=== PATIENT | male | born 1990 | race Caucasian/White ===

== ENCOUNTER → 2024-05-18 | Outpatient (CLI) | payer BC, SELFPAY ==
--- NOTE | 2024-05-18 15:17 | RAD_ITS ---
EXAM: XR RIGHT HAND COMPLETE, 3 OR MORE VIEWS CLINICAL INDICATION: CONTUSION OF RIGHT HAND TECHNIQUE: Frontal, lateral and oblique views of the right hand. COMPARISON: No relevant prior studies available. FINDINGS: BONES/JOINTS: Unremarkable. No acute fracture. No subluxation. Normal alignment. Preservation of the joint space. No sclerotic or destructive changes observed. SOFT TISSUES: Unremarkable. No soft tissue swelling or gas. No radiopaque foreign body. RAD/Hand Min 3 Views IMPRESSION: Negative right hand x-rays. Electronically Signed: Ricki Rose MD at 15:48 EST ,
== END | disposition home or self-care (01) ==
PROVIDERS: Visit Provider Nurse Practitioner Family
DX: S60.221A Contusion of right hand, initial encounter (principal)
CPT/HCPCS: 73130

== ENCOUNTER 2024-09-12 01:13 | Emergency (ER) | payer OTHER, SELFPAY ==
[2024-09-12 01:13] VITALS: BP 139/87; PULSE 85; RESP 16; TEMP 36.5; O2SAT 98; BMI 28.7
--- NOTE | 2024-09-12 01:19 | EX.ED.UPPERE ---
HPI History of Present Illness Chief Complaint: Laceration Detail of Chief Complaint: Right elbow laceration Informant: patient Narrative Narrative: Patient presents the emergency department complaint of a laceration to his right elbow. 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 He is right-hand dominant. Unsure of his last tetanus shot. PFSH PFS Medical History no medical history Home Medications ?Medication ?Instructions ?Recorded ?Last Taken ?Type NK 09/12/24 Unknown History Allergy/AdvReac Type Severity Reaction Status Date / Time No Known Allergies Allergy Verified 09/12/24 01:14 Social History Smoking Status: Current every day smoker tobacco type: e-cigarettes ROS ROS ED Review of Systems ROS Unobtainable: other Constitutional Constitutional ED: Reports lethargy; Denies chills, fever(s), sweats or weight loss Eyes Eyes: Denies blurry vision, change in vision or diplopia ENT ENT ED: Denies rhinorrhea or sore throat Cardiovascular Cardiovascular: Denies chest pain, orthopnea or racing heartbeat Respiratory/Chest Respiratory/Chest: Denies cough, dyspnea, dyspnea on exertion, orthopnea or sputum Gastrointestinal Gastrointestinal: Denies abdominal pain, diarrhea, nausea or vomiting Genitourinary Genitourinary ED: Denies dysuria, hematuria or urinary frequency Musculoskeletal Musculoskeletal: Denies arthralgias, back pain, myalgias or neck pain Integumentary Reports other Details: Laceration right elbow ; Denies abscess, Abrasions or rash Neurologic Neurologic: Denies headache(s) or weakness Psychiatric Psychiatric: Denies anxiety, depression or suicidal thoughts Endocrine Endocrinology: Denies polydipsia, polyphagia or polyuria Hematologic/Lymphatic Hematologic/Lymphatic: Denies easy bleeding, easy bruising or lymphadenopathy Allergic/Immunologic Allergic/Immunologic ED: Denies mouth swelling, tongue swelling or urticaria EXAM Physical Exam Const Vital Signs: 09/12/24 01:13 Temperature 97.7 F L Temperature Source Oral Pulse Rate 85 Respiratory Rate 16 Blood Pressure 139/87 H Blood Pressure Mean 104 Pulse Ox 98 Oxygen Delivery Method Room Air Positive well nourished and well developed General Appearance ED: well developed and NAD HEENT Reports TM's clear and moist mucous membranes normocephalic and atraumatic; Negative for trauma or tenderness Tympanic Membrane ED: Yes TM's clear Eyes PERRL and EOMs intact bilaterally General Eye ED: Negative for pale conjunctiva or scleral icterus Neck no lymphadenopathy, supple and no JVD General: Negative for tenderness Chest Wall inspection of chest normal and palpation of chest normal Chest: Negative for tenderness Resp normal respiratory effort and clear to auscultation bilaterally Effort and Inspection: Negative for respiratory distress or pain with movement Auscultation: Negative for rhonchi, wheezes or diminished lung sounds Cardio regular rate, regular rhythm, S1 normal heart sound, S2 normal heart sound and no murmurs Peripheral Pulses: pulses 2+ throughout GI normal to inspection, nondistended, normoactive bowel sounds, soft to palpation, non-tender, non-distended and no masses Back/Spine no CVA tenderness and no thoracic nor lumbar tenderness Extremity Extremity Narrative: Right elbow-no bony tenderness on exam. He does have a 3 cm laceration proximal to the olecranon posteriorly. It is flap-like. Neurovascularly intact distally. No significant bleeding at this time. Normal range of motion at the elbow. General Extremety ED: Negative for edema General Extremity: Negative for edema Neuro oriented x3, CN's II-XII intact bilaterally, no sensory deficits noted and gait normal Sensorium / Orientation: awake, alert, oriented to person, oriented to place and oriented to time Motor Exam: strength 5/5 throughout and strength abnormal Psych mental status grossly normal Skin no rashes or lesions noted and no wounds MDM MDM MDM Narrative Medical decision making narrative: Patient presents with laceration to his right elbow. Please see procedure note for repair. Clean dressing applied after. He received a tetanus booster. The wound was explored and was superficial and did not involve the joint. I do not feel any imaging is indicated. Patient advised to follow-up with [facility] in 10 days for suture removal. He is to return if increasing pain, redness, swelling, purulent drainage, or condition should worsen anyway. Procedures Lacerations Right elbow laceration: Length: 1.18 in Depth: Sub Q Shape: Flap Prep: Sterile Conditions and Shure-Clens Laceration repair: Irrigated, Lidocaine, Local and Skin sutures Irrigated (ml): 50 Number of Sutures/Abigail: 3 Suture Information: Ethilon, Simple and 4-0 Discharge Plan Triage Chief Complaint: Laceration ED Provider: Yuli Ramirez Dx/Rx/DC Orders Clinical Impression: Laceration of elbow, right Instructions: ED Laceration Extremity Prescriptions: No Action NK Primary Care Provider: Care Physician,No Primary Referrals: [facility] [Group of Physicians] - 10 Day for suture removal Care Physician,No Primary [Primary Care Provider] - Print Language: Yoruba Disposition Disposition: Home, Self Care
[2024-09-12] MEDS: Diphth,Pertuss(Acell),Tet Vac 0.5 ML Vial IM (01:23)
[2024-09-12] MEDS: Lidocaine 1% (20 ml mdv) 20 ML Vial 6 ML INFILT (01:42)
[2024-09-12 01:43] VITALS: BP 138/84; PULSE 73; RESP 16; TEMP 36.5; O2SAT 98
== END 2024-09-12 01:49 | disposition home or self-care (01) ==
PROVIDERS: Emergency Provider Emergency Medicine; Visit Provider Emergency Medicine
DX: S51.011A Laceration without foreign body of right elbow, initial encounter (principal); W01.198A Fall on same level from slipping, tripping and stumbling with subsequent striking against other object, initial encounter; Y92.79 Other farm location as the place of occurrence of the external cause; Y99.0 Civilian activity done for income or pay; Z23 Encounter for immunization
CPT/HCPCS: 12002; 90715; 96372; 99283